=== PATIENT | female | born 1970 | race Caucasian/White ===

== ENCOUNTER 2017-07-26 20:46 | Emergency (ER) | payer OTHER ==
[2017-07-26] MEDS ORDERED: methylPREDNISolone Sodium Succinate 125 MG/2 ML SDV IVPUSH ONE (20:59)
--- NOTE | 2017-07-26 21:39 | EDM.PDOC ---
ED HPI GENERAL MEDICAL PROBLEM - General Chief Complaint: ENT Problem Time Seen by Provider: 07/26/17 20:47 Source of Information: Reports: Patient History Limitations: Reports: No Limitations - History of Present Illness INITIAL COMMENTS - FREE TEXT/NARRATIVE: Patient brought to ER by with complaint of aspiration of a piece of meat. She feels like it went through the airway and is lodged in left upper lung. 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 This is performed at the [facility] and she is due for this currently. She estimates that she is 70% stenosed currently. - Related Data Allergies Allergy/AdvReac Type Severity Reaction Status Date / Time No Known Allergies Allergy Verified 07/26/17 20:57 Home Meds: Home Meds . [No Known Home Meds] 07/26/17 [History] ED ROS ENT - Review of Systems Review Of Systems: See Below Constitutional: Denies: Fever, Weakness Respiratory: Reports: Shortness of Breath (mild), Wheezing (probably just stridor), Cough Cardiovascular: Denies: Chest Pain, Edema, Syncope GI/Abdominal: Denies: Abdominal Pain, Vomiting : Reports: No Symptoms Musculoskeletal: Reports: No Symptoms Skin: Denies: Cyanosis, Jaundice, Mottled, Pallor, Diaphoresis Neurological: Denies: Confusion, Dizziness, Seizure, Syncope, Trouble Speaking Psychiatric: Reports: Anxiety (currently with this choking). Denies: Agitation , Confusion ED EXAM, ENT - Physical Exam Exam: See Below Exam Limited By: No Limitations General Appearance: Alert, WD/WN, No Apparent Distress Eye Exam: Bilateral Eye: EOMI, Normal Inspection, PERRL Ears: Normal External Exam, Hearing Grossly Normal Nose: Normal Inspection, No Blood Mouth/Throat: Normal Gums, Normal Lips, Normal Oropharynx, Normal Teeth, Hoarse Voice. No: Muffled Voice, Perioral Cyanosis, Peritonsillar Mass, Pharyngeal Erythema, Throat Swelling, Tongue Swelling, Tonsillar Exudates, Tonsillar Swelling Head: Atraumatic, Normocephalic Neck: Supple, Non-Tender, Full Range of Motion, Other (mildly audible stridor with inspiration and expiration; heard clearly on auscultation) Respiratory/Chest: Respiratory Distress (mild, chronic), Wheezing (same pitch as stridor so likely referred), Stridor Cardiovascular: Regular Rate, Rhythm, No Murmur GI/Abdominal: No Distention Extremities: Normal Inspection, Normal Range of Motion Neurological: Alert, Oriented, Normal Cognition, Normal Gait, No Motor/Sensory Deficits Psychiatric: Normal Affect, Normal Mood, Anxious (mild with concern of her choking) Skin: Warm, Dry, Intact, Normal Color, No Rash Course - Orders/Labs/Meds Orders: Active Orders 24 hr Category Date Time Status Chest 2V [CR] Stat Exams 07/26/17 20:52 Ordered - Re-Assessments/Exams Free Text/Narrative Re-Assessment/Exam: 07/26/17 21:40 Patient has remained stable throughout ER course. She has mildly audible inspiratory and expiratory stridor which she says is her baseline currently with the level of stenosis she has. I called [facility] but they don't have the ability to do bronchoscopy this weekend. I called [facility] in [place] and spoke with an ICU/G[employer] Operator who is able to do bronchoscopy if needed but wants patient to be admitted and monitored but wait for a scheduled bronchoscopy in the morning if needed. Patient was accepted by hospitalist Dr. Ramirez for transfer. Discussed plan with patient and her and she was discharged to transfer in stable condition. Patient was given solu-medrol 125 mg IV soon after arrival, which seems to be helping the breathing moderately. She has maintained good oxygenation without supplemental oxygen. Departure - Departure Time of Disposition: 21:39 Disposition: DC/Tfer to Acute Hospital 02 Condition: Good Clinical Impression: Subglottic stenosis Aspiration into respiratory tract Qualifiers: Encounter type: initial encounter Qualified Code(s): T17.908A - Unspecified foreign body in respiratory tract, part unspecified causing other injury, initial encounter - Discharge Information - My Orders Last 24 Hours: My Active Orders 07/26/17 20:52 Chest 2V [CR] Stat - Assessment/Plan Last 24 Hours: My Active Orders 07/26/17 20:52 Chest 2V [CR] Stat
== END 2017-07-26 22:10 ==
LOC: KA.ED 20:46
DX: T17.908A Unspecified foreign body in respiratory tract, part unspecified causing other injury, initial encounter (principal); J38.6 Stenosis of larynx
CPT/HCPCS: 71020; 99283; J2930; 96374